=== PATIENT | female | born 1975 | race Caucasian/White ===

== ENCOUNTER 2022-04-16 21:55 | Emergency (ER) | payer MEDICARE, OTHER ==
[2022-04-16] MEDS ORDERED: diphenhydrAMINE 25 MG CAP ONE (23:44)
== END 2022-04-17 01:11 | disposition home or self-care (01) ==
LOC: ERS 21:55
DX: L50.0 Allergic urticaria (principal); E78.5 Hyperlipidemia, unspecified; F17.210 Nicotine dependence, cigarettes, uncomplicated
CPT/HCPCS: 99283